=== PATIENT | male | born 1985 | race Caucasian/White ===

== ENCOUNTER 2017-07-28 23:35 | Emergency (ER) | payer SELFPAY ==
[2017-07-28] MEDS ORDERED: Lidocaine 1% 20 ML MDV INJECT ONE (23:52)
--- NOTE | 2017-07-28 23:52 | EDM.PDOC ---
ED HPI GENERAL MEDICAL PROBLEM - General Chief Complaint: Laceration Stated Complaint: PT HURT LT HAND Time Seen by Provider: 07/28/17 23:52 Source of Information: Reports: Patient - History of Present Illness INITIAL COMMENTS - FREE TEXT/NARRATIVE: HISTORY AND PHYSICAL: History of present illness: [Patient has a 1.5 cm laceration linear lack medial left index finger tendon function intact pre-and post suture entire limb is neurovascularly intact No fever nausea vomiting chills sweats Tetanus status is up-to-date last year ] Review of systems: As per history of present illness and below otherwise all systems reviewed and negative. Past medical history: As per history of present illness and as reviewed below otherwise noncontributory. Surgical history: As per history of present illness and as reviewed below otherwise noncontributory. Social history: No reported history of drug or alcohol abuse. Family history: As per history of present illness and as reviewed below otherwise noncontributory. Physical exam: HEENT: Atraumatic, normocephalic, pupils reactive, negative for conjunctival pallor or scleral icterus, mucous membranes moist, throat clear, neck supple, nontender, trachea midline. Lungs: Clear to auscultation, breath sounds equal bilaterally, chest nontender. Heart: S1S2, regular, negative for clicks, rubs, or JVD. Abdomen: Soft, nondistended, nontender. Negative for masses or hepatosplenomegaly. Negative for costovertebral tenderness. Pelvis: Stable nontender. Genitourinary: Deferred. Rectal: Deferred. Extremities: Atraumatic, negative for cords or calf pain. Neurovascular unremarkable. Neuro: Awake, alert, oriented. Cranial nerves II through XII unremarkable. Cerebellum unremarkable. Motor and sensory unremarkable throughout. Exam nonfocal. Skin as per history of present illness otherwise unremarkable Diagnostics: [Clinical ] Therapeutics: [Tetanus status up-to-date Keflex 500 by mouth twice a day #20 no refill Wound is cleansed and explored #3 4-0 Prolene sutures interrupted no complication no complaint Lidocaine 2 mL for anesthesia Standard wound care instructions Clean and dry for 48 hours Sutures out in 10 days Bacitracin Telfa tube dressing ] Impression: []Laceration 1.5 cm linear laceration Definitive disposition and diagnosis as appropriate pending reevaluation and review of above. - Related Data Allergies Allergy/AdvReac Type Severity Reaction Status Date / Time No Known Allergies Allergy Verified 07/29/17 00:00 Home Meds: Home Meds . [No Known Home Meds] 07/29/17 [History] ED ROS GENERAL - Review of Systems Review Of Systems: ROS reveals no pertinent complaints other than HPI. ED EXAM, SKIN/RASH Exam: See Below Course - Vital Signs Last Recorded V/S: Last Vital Signs Temp 98.5 F 07/29/17 00:00 Pulse 89 07/29/17 00:00 Resp 16 07/29/17 00:00 BP 138/89 07/29/17 00:00 Pulse Ox 98 07/29/17 00:00 - Orders/Labs/Meds Meds: Medications Discontinued Medications Generic Name Dose Route Start Last Admin Trade Name Bran PRN Reason Stop Dose Admin Lidocaine HCl 20 ml 07/28/17 23:52 Xylocaine 1% INJECT 07/28/17 23:53 ONETIME ONE Departure - Departure Time of Disposition: 00:10 Disposition: Home, Self-Care 01 Condition: Good Clinical Impression: Laceration - Discharge Information Referrals: PCP,None [Primary Care Provider] - Forms: ED Department Discharge Additional Instructions: Standard wound care instruction is discussed Keep wound clean and dry for 48 hours Return if redness warmth or pus drainage fever nausea vomiting chills sweats despite antibiotic Keflex 500 mg by mouth twice a day #20 no refill Sutures out in 10 days return to ER or primary care for suture removal The following information is given to patients seen in the emergency department who are being discharged to home. This information is to outline your options for follow-up care. We provide all patients seen in our emergency department with a follow-up referral. The need for follow-up, as well as the timing and circumstances, are variable depending upon the specifics of your emergency department visit. If you don't have a primary care physician on staff, we will provide you with a referral. We always advise you to contact your personal physician following an emergency department visit to inform them of the circumstance of the visit and for follow-up with them and/or the need for any referrals to a consulting specialist. The emergency department will also refer you to a specialist when appropriate. This referral assures that you have the opportunity for follow-up care with a specialist. All of these measure are taken in an effort to provide you with optimal care, which includes your follow-up. Under all circumstances we always encourage you to contact your private physician who remains a resource for coordinating your care. When calling for follow-up care, please make the office aware that this follow-up is from your recent emergency room visit. If for any reason you are refused follow-up, please contact the [facility] emergency department at and asked to speak to the emergency department charge nurse.
== END 2017-07-29 00:30 | disposition home or self-care (01) ==
LOC: MW.ED 23:35 → MERGE 23:35 → MW.ED 07-29 00:30
DX: S61.217A Laceration without foreign body of left little finger without damage to nail, initial encounter (principal); W26.0XXA Contact with knife, initial encounter
CPT/HCPCS: 12001; 99282

== ENCOUNTER 2017-08-09 23:09 | Emergency (ER) | payer SELFPAY | END 2017-08-09 23:20 | disposition left against medical advice (07) | LOC: MW.ED 23:09 | DX: Z53.21 Procedure and treatment not carried out due to patient leaving prior to being seen by health care provider (principal) ==

== ENCOUNTER 2018-02-01 04:26 | Emergency (ER) | payer SELFPAY ==
--- NOTE | 2018-02-01 04:29 | EDM.PDOC ---
ED HPI GENERAL MEDICAL PROBLEM - General Stated Complaint: RIGHT FOOT PAIN Time Seen by Provider: 02/01/18 04:29 Source of Information: Reports: Patient History Limitations: Reports: No Limitations - History of Present Illness INITIAL COMMENTS - FREE TEXT/NARRATIVE: HISTORY AND PHYSICAL: History of present illness: 32-year-old male presenting to the emergency department with chief complaint of left foot pain 3-4 days. Patient states that about 3-4 days ago he began to have some mild left foot pain. Since then pain has increased to the point where tonight he was unable to sleep. States the pain is in his left great toe. Denies any significant trauma to the area. He denies any history of gout. Otherwise he is generally healthy and takes no medications. Currently denies any chest pain, palpitations, shortness breath, syncopal episodes, or focal neurologic deficits. Review of systems: As per history of present illness and below otherwise all systems reviewed and negative. Past medical history: As per history of present illness and as reviewed below otherwise noncontributory. Surgical history: As per history of present illness and as reviewed below otherwise noncontributory. Social history: No reported history of drug or alcohol abuse. Family history: As per history of present illness and as reviewed below otherwise noncontributory. Physical exam: HEENT: Atraumatic, normocephalic, pupils reactive, negative for conjunctival pallor or scleral icterus, mucous membranes moist, throat clear, neck supple, nontender, trachea midline. Lungs: Clear to auscultation, breath sounds equal bilaterally, chest nontender. Heart: S1S2, regular, negative for clicks, rubs, or JVD. Abdomen: Soft, nondistended, nontender. Negative for masses or hepatosplenomegaly. Negative for costovertebral tenderness. Pelvis: Stable nontender. Genitourinary: Deferred. Rectal: Deferred. Extremities: Atraumatic, negative for cords or calf pain. Neurovascular unremarkable. Neuro: Awake, alert, oriented. Cranial nerves II through XII unremarkable. Cerebellum unremarkable. Motor and sensory unremarkable throughout. Exam nonfocal. Diagnostics: Left foot x-ray Therapeutics: Dexamethasone Prednisone Tordol Impression: Gout flare Left foot x-ray was unremarkable. Clinical signs and symptoms suggestive of gouty flare. I did give the patient a one dose steroid as well as Toradol in the emergency department. Discharge him with a prescription for prednisone and diclofenac. He is going to follow-up with primary care doctor. Definitive disposition and diagnosis as appropriate pending reevaluation and review of above. Left Feet Pain Score (Numeric/FACES): 7 - Related Data Allergies Allergy/AdvReac Type Severity Reaction Status Date / Time No Known Allergies Allergy Verified 02/01/18 04:45 Home Meds: Home Meds . [No Known Home Meds] 07/29/17 [History] Past Medical History - Past Health History Medical/Surgical History: Denies Medical/Surgical History HEENT History: Reports: None Cardiovascular History: Reports: None Respiratory History: Reports: None Gastrointestinal History: Reports: None Genitourinary History: Reports: None Musculoskeletal History: Reports: None Neurological History: Reports: None Psychiatric History: Reports: None Endocrine/Metabolic History: Reports: None Hematologic History: Reports: None Oncologic (Cancer) History: Reports: None Dermatologic History: Reports: None - Infectious Disease History Infectious Disease History: Reports: None Social & Family History - Family History Family Medical History: Noncontributory ED ROS GENERAL - Review of Systems Review Of Systems: ROS reveals no pertinent complaints other than HPI. ED EXAM, GENERAL - Physical Exam Exam: See Below Course - Vital Signs Last Recorded V/S: Last Vital Signs Temp 97.8 F 02/01/18 04:43 Pulse 104 H 02/01/18 04:43 Resp 18 02/01/18 04:43 BP 145/88 H 02/01/18 04:43 Pulse Ox 99 02/01/18 04:43 - Orders/Labs/Meds Orders: Active Orders 24 hr Category Date Time Status Foot 2V Lt [CR] Stat Exams 02/01/18 04:43 Taken Meds: Medications Discontinued Medications Generic Name Dose Route Start Last Admin Trade Name Freq PRN Reason Stop Dose Admin Dexamethasone 10 mg 02/01/18 04:45 02/01/18 04:51 Dexamethasone IM 02/01/18 04:46 10 mg ONETIME ONE Administration Ketorolac Tromethamine 60 mg 02/01/18 04:44 02/01/18 04:51 Toradol IM 02/01/18 04:45 60 mg ONETIME ONE Administration Departure - Departure Time of Disposition: 05:03 Disposition: Home, Self-Care 01 Condition: Good Clinical Impression: Gout flare Qualifiers: Gout site: foot Gout etiology: unspecified cause Laterality: left Qualified Code(s): M10.9 - Gout, unspecified - Discharge Information Referrals: PCP,None [Primary Care Provider] - Additional Instructions: My general discharge The following information is given to patients seen in the emergency department who are being discharged to home. This information is to outline your options for follow-up care. We provide all patients seen in our emergency department with a follow-up referral. The need for follow-up, as well as the timing and circumstances, are variable depending upon the specifics of your emergency department visit. If you don't have a primary care physician on staff, we will provide you with a referral. We always advise you to contact your personal physician following an emergency department visit to inform them of the circumstance of the visit and for follow-up with them and/or the need for any referrals to a consulting specialist. The emergency department will also refer you to a specialist when appropriate. This referral assures that you have the opportunity for follow-up care with a specialist. All of these measure are taken in an effort to provide you with optimal care, which includes your follow-up. Under all circumstances we always encourage you to contact your private physician who remains a resource for coordinating your care. When calling for follow-up care, please make the office aware that this follow-up is from your recent emergency room visit. If for any reason you are refused follow-up, please contact the [facility] Emergency Department at and asked to speak to the emergency department charge nurse. [facility] [address] [place] [id number] [id number] Follow-up with primary care provider Return to emergency department if any new or worsening symptoms Take medications as prescribed - My Orders Last 24 Hours: My Active Orders 02/01/18 04:43 Foot 2V Lt [CR] Stat - Assessment/Plan Last 24 Hours: My Active Orders 02/01/18 04:43 Foot 2V Lt [CR] Stat
[2018-02-01] MEDS ORDERED: Ketorolac 60 MG/2 ML SDV IM ONE (04:44)
[2018-02-01] MEDS ORDERED: Dexamethasone 10 MG/ML SDV IM ONE (04:45)
--- NOTE | 2018-02-02 17:51 | CR ---
EXAM DATE: 02/01/18 PATIENT'S AGE: 32 Patient: TAY CHAN Facility: [place], [place] Site . Site : 1985 Study: XRay Extremity Left [id number]/[id number] 5:03:32 AM Ordering Physician: Madi Adames Final Report: Indication: Foot pain Technique: Two views of the left foot Comparison: None available Findings: Bones: An apparent small subtle lucency at the base of the proximal 5th phalanx could be projectional. Otherwise no acute fracture or dislocation. Joint spaces: Preserved. A small calcific density along the dorsum of the talonavicular joint, possibly sequela of old trauma or an ossicle. Soft tissues: Mild dorsal soft tissue swelling. Impression: An apparent small subtle lucency at the base of the 5th proximal phalanx could be projectional. Otherwise no acute fracture or dislocation. Correlate for focal tenderness. Dictated by Fidel Dowd MD @ 02/01/2018 5:32:57 AM Dictated by: Fidel Dowd MD @ 02/01/2018 05:33:03 (Electronic Signature) Report Signed by Proxy. ABBY
== END 2018-02-01 05:15 | disposition home or self-care (01) ==
LOC: MW.ED 04:26
DX: M10.9 Gout, unspecified (principal)
CPT/HCPCS: 73620; 96372; 99283; J1100; J1885